=== PATIENT | female | born 1975 ===

== ENCOUNTER 2016-06-20 14:24 | Emergency (ER) | payer OTHER ==
[2016-06-20 14:51] VITALS: BP 97/56
--- NOTE | 2016-06-20 15:00 | UC ---
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 Patient requesting baseline screening--In the past has always turned down Hep B series vaccine - History of Current Complaint Chief Complaint: UC Stated Complaint: HEP SCREENING Time Seen by Provider: 06/20/16 14:54 Hx Obtained From: Patient Current Severity: None - Allergy/Home Medications Allergies/Adverse Reactions: Allergies Allergy/AdvReac Type Severity Reaction Status Date / Time No Known Allergies Allergy Verified 06/20/16 14:50 PMH/Surg Hx/FS Hx/Imm Hx Previously Healthy: Yes Endocrine History Of: Denies: Diabetes, Thyroid Disease Cardiovascular History Of: Denies: Cardiac Disorders, Hypertension Respiratory History Of: Denies: COPD, Asthma GI/ History Of: Denies: Ulcer - Surgical History Surgical History: None - Family History Known Family History: Positive: None Family History: Denies cardiovascular issues in family lineage - Social History Occupation: Employed Full-time Lives: With Family Alcohol Use: None Substance Use Type: None Smoking Status (MU): Never Smoked Tobacco Review of Systems Constitutional: Negative Skin: Negative Eyes: Negative ENT: Negative Respiratory: Negative Cardiovascular: Negative Gastrointestinal: Negative Genitourinary: Negative Motor: Negative Neurovascular: Negative Musculoskeletal: Negative Neurological: Negative Psychological: Negative All Other Systems Reviewed And Are Negative: Yes Physical Exam Triage Information Reviewed: Yes Appearance: Well-Appearing, No Pain Distress, Well-Nourished Vital Signs: Initial Vital Signs Temp 98.1 F 06/20/16 14:46 Pulse 72 06/20/16 14:46 Resp 16 06/20/16 14:46 BP 97/56 06/20/16 14:46 Pulse Ox 100 06/20/16 14:46 Vital Signs Reviewed: Yes Eye Exam: Normal Eyes: Positive: Conjunctiva Clear ENT Exam: Normal ENT: Positive: Normal ENT inspection, Hearing grossly normal. Negative: Trismus , Muffled/hoarse voice Dental Exam: Normal Neck exam: Normal Neck: Positive: Supple, Nontender Respiratory Exam: Normal Respiratory: Positive: Normal breath sounds, No respiratory distress Cardiovascular Exam: Normal Cardiovascular: Positive: RRR, Pulses Normal, Brisk Capillary Refill Musculoskeletal Exam: Normal Musculoskeletal: Positive: Strength Intact, ROM Intact, No Edema Neurological Exam: Normal Neurological: Positive: Alert, Muscle Tone Normal Psychological Exam: Normal Skin Exam: Normal Course/Dx - Course Course Of Treatment: hep b/c screening, follow with PCP in [place] or referral provider - Differential Dx - Multi-Symptom Differential Diagnoses: Metabolic Abnormality, Sepsis, Other - Hepatitis Screening Provider Diagnoses: Health Education, Hepatitis Screening Discharge - Discharge Plan Condition: Stable Disposition: HOME Patient Education Materials: Hepatitis C (ED), Hepatitis B (ED) Referrals: [facility] [Outside] - 1 Week
== END 2016-06-20 15:25 | disposition home or self-care (01) ==
LOC: UCEAST 14:24
DX: Z11.59 Encounter for screening for other viral diseases (principal)
CPT/HCPCS: 36415; 86706; 86803; 87340; 99211; G0463